=== PATIENT | female | born 1945 | race Caucasian/White ===

== ENCOUNTER → 2017-03-31 | Outpatient (CLI) | payer OTHER | LOC: BHLMT 09:30 | PROVIDERS: ATTEND Internal Medicine Cardiovascular Disease | DX: R07.9 Chest pain, unspecified (principal) | CPT/HCPCS: 78452; 93017; A9500; J2785 ==

== ENCOUNTER → 2018-03-09 | Outpatient (CLI) | payer OTHER | LOC: FIMAGING 10:18 | PROVIDERS: ATTEND Internal Medicine | DX: I25.84 Coronary atherosclerosis due to calcified coronary lesion (principal); K44.9 Diaphragmatic hernia without obstruction or gangrene; K57.30 Diverticulosis of large intestine without perforation or abscess without bleeding ==

== ENCOUNTER 2018-06-13 06:17 | Day surgery (SDC) | payer OTHER ==
[2018-06-13] MEDS ORDERED: ceFAZolin 2 GM/DEXTROSE 100 ML IV ONE (06:23)
[2018-06-13] MEDS ORDERED: LR 1,000 ML IV ONE (06:25)
[2018-06-13] MEDS ORDERED: LIDOCAINE 1% 2 ML INJ ID PRN (06:25)
[2018-06-13] MEDS ORDERED: BUPIVACAINE 0.5% 30 ML SDV ONE (07:22)
[2018-06-13] MEDS ORDERED: LIDOCAINE 1% 300 MG/30 ML SDV ONE (07:36)
--- NOTE | 2018-06-13 08:44 | PDANEPAE ---
ANE History of Present Illness soft tissue mass breast, here for lumpectomy ANE Past Medical History - Cardiovascular History Hx Hypertension: Yes Hx Arrhythmias: No Hx Chest Pain: No Hx Coronary Artery / Peripheral Vascular Disease: No Hx CHF / Valvular Disease: No Hx Palpitations: No Cardiovascular History Comment: hyperlipidemia - Pulmonary History Hx COPD: No Hx Asthma/Reactive Airway Disease: No Hx Recent Upper Respiratory Infection: No Hx Oxygen in Use at Home: No Hx Sleep Apnea: No Sleep Apnea Screening Result - Last Documented: Negative - Neurologic History Hx Cerebrovascular Accident: No Hx Seizures: No Hx Dementia: No Neurologic History Comment: neuropathy - Endocrine History Hx Diabetes: Yes Endocrine History Comment: type 2. hypothyroidism - Renal History Hx Renal Disorders: No - Liver History Hx Hepatic Disorders: No - Neurological & Psychiatric Hx Hx Neurological and Psychiatric Disorders: Yes Neurological / Psychiatric History Comment: depression - Cancer History Hx Cancer: Yes Cancer History Comment: current breast cancer. hx of basal cell - Congenital Disorder History Hx Congenital Disorders: No - GI History Hx Gastrointestinal Disorders: Yes Gastrointestinal History Comment: GERD - Other Health History Other Health History: wears glasses. lower partial plate. 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 roxanne. hysterectomy. bladder repair. bilateral foot surgeries to correct polio ANE Review of Systems Review of Systems: - Exercise capacity METS (RN): 4 METS ANE Patient History - Allergies Allergies/Adverse Reactions: morphine Allergy (Verified 06/12/18 15:37) SEVERE NAUSEA/HALLUCINATIONS/FAINTING Penicillins Allergy (Verified 06/12/18 15:37) Rash - Home Medications Home Medications: Aspirin 81mg (*) 06/12/18 [Last Taken 06/12/18] Atorvastatin Calcium 06/12/18 [Last Taken 06/12/18 2100] Citracal 06/12/18 [Last Taken Unknown] Famotidine 40 mg BID 06/12/18 [Last Taken 06/13/18 0445] Ferosul 06/12/18 [Last Taken 06/11/18 2100] Gabapentin 600 mg BID 06/12/18 [Last Taken 06/13/18 0445] Herbals/Supplements -Info Only 06/12/18 [Last Taken 06/12/18] Levothyroxine 06/12/18 [Last Taken 06/13/18 0445] Metformin HCl 06/12/18 [Last Taken 06/12/18] Potassium Chloride 06/12/18 [Last Taken 06/12/18 2100] Sertraline HCl 50 mg DAILY 06/12/18 [Last Taken 06/13/18 4445] Triamterene/Hctz 75/50 DAILY 06/12/18 [Last Taken 06/12/18] glipiZIDE XL 06/12/18 [Last Taken 06/12/18] - NPO status NPO Status: no food or drink >8 hours NPO Since - Liquids (Date): 06/13/18 NPO Since - Liquids (Time): 04:45 NPO Since - Solids (Date): 06/12/18 NPO Since - Solids (Time): 20:00 - Anes Hx Anes Hx: post operative nausea and vomiting - Smoking Hx Smoking Status: Former smoker - Alcohol Use Alcohol Use: Occasionally - Family Anes Hx Family Anes Hx: none Family Hx Anesthesia Complications: none ANE Labs/Vital Signs - Labs Result Diagrams: 06/13/18 07:10 - Vital Signs Blood Pressure: 129/75 Heart Rate: 69 Respiratory Rate: 16 O2 Sat (%): 94 Height: 160.02 cm Weight: 70.307 kg ANE Physical Exam - Airway Neck exam: FROM Mallampati Score: Class 2 Mouth exam: dentures - Pulmonary Pulmonary: no respiratory distress, clear to auscultation - Cardiovascular Cardiovascular: regular rate and rhythym, no murmur, rub, or gallop - ASA Status ASA Status: III ANE Anesthesia Plan Anesthesia Plan: GA w LMA
[2018-06-13] MEDS ORDERED: LIDOCAINE 2% 100 MG/5 ML SYR ONE (08:52)
[2018-06-13] MEDS ORDERED: fentaNYL 100 MCG/2 ML INJ ONE (08:52)
[2018-06-13] MEDS ORDERED: PROPOFOL/EMULSION 500 MG/50 ML BOTTLE IV ONE (08:52)
--- NOTE | 2018-06-13 08:53 | PDHPUP ---
History & Physical Update H&P update statement: This history and physical update is based on an assessment of the patient which was completed after admission or registration (within 24 hours), but prior to the surgery/procedure. H&P update: H&P reviewed & patient examined, no change in patient's condition since H&P completed
[2018-06-13] MEDS ORDERED: SCOPOLAMINE HYDROBROMIDE 1 MG/3 DAYS PATCH TD SCH (09:00)
[2018-06-13] MEDS ORDERED: ONDANSETRON 4 MG/2 ML VIAL ONE (09:30)
[2018-06-13] MEDS ORDERED: PROMETHAZINE HCL 25 MG/ML INJ IVP PRN (09:35)
[2018-06-13] MEDS ORDERED: HYDROCODONE/APAP 5/325 TAB PO PRN (09:35)
[2018-06-13] MEDS ORDERED: fentaNYL 100 MCG/2 ML INJ IVP PRN (09:35)
[2018-06-13] MEDS ORDERED: ONDANSETRON 4 MG/2 ML VIAL IVP PRN (09:35)
[2018-06-13] MEDS ORDERED: DEXAMETHASONE 4 MG/ML VIAL IVP PRN (09:35)
[2018-06-13] MEDS ORDERED: ACETAMINOPHEN 500 MG TAB PO PRN (09:35)
[2018-06-13] MEDS ORDERED: oxyCODONE IR 5 MG TAB PO PRN (09:35)
[2018-06-13] MEDS ORDERED: NALOXONE HCL 0.4 MG/ML INJ IVP PRN (09:35)
--- NOTE | 2018-06-13 09:52 | POSTOPPROG ---
Post Op Note Date of Operation: 06/13/18 Surgeon: Huma Tompkins Anesthesiologist: elise Anesthesia: GET(General Endotracheal) Pre-op Diagnosis: R DCIS Post-op Diagnosis: Same Indication: 72 yo with DCIS Procedure: R needle loc lump Findings: Clip in specimen Inf/Abcess present in the surg proc area at time of surgery?: No Depth: Superfical (Skin SQ) EBL: Minimal Specimen(s): lump and margins
--- NOTE | 2018-06-13 09:55 | POSTANESTH ---
Post Anesthetic Evaluation Cardiovascular Status: Normal, Stable, Similar to Pre-Op Cond Respiratory Status: Normal, Stable, Requires Airway Assist Level of Consciousness/Mental Status: Mildly Sleepy, Arousable, Moderately Sleepy Pain Control: Adequate, Prn Tx Ordered Nausea/Vomiting Control: Adequate, Prn Tx Ordered Complications Possibly Related to Anesthesia: None Noted
[2018-06-13 11:40] VITALS: BP 146/80
--- NOTE | 2018-06-13 20:49 | GOP ---
DATE OF OPERATION: 06/13/2018 SURGEON: Huma Tompkins MD ANESTHESIA: General. ANESTHESIOLOGIST: Nigel Phan MD PREOPERATIVE DIAGNOSIS: Right breast ductal carcinoma in situ. POSTOPERATIVE DIAGNOSIS: Right breast ductal carcinoma in situ. PROCEDURE PERFORMED: Right needle localized lumpectomy. FINDINGS: clip within the specimen SPECIMENS: Lumpectomy and margins. ESTIMATED BLOOD LOSS: 10 cc. INDICATIONS: The patient is a 72-year-old woman with a history of left breast cancer. 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 She was not eligible for the COMMIT trial, since this is her 2nd breast cancer. DESCRIPTION OF PROCEDURE: The patient was brought into the operating room, placed supine on the table and general anesthesia was administered. Her right breast was prepped and draped in the usual sterile fashion. I infiltrated the area with 0.5% Marcaine prior to making incisions, and made an ellipse around the wire and created superior and inferior skin flaps. I dissected down beyond the level of the wire. I marked the specimen green anterior, red superior, yellow medial, blue inferior, orange lateral, black posterior, it was submitted to Radiology. The clip was contained within the calcifications within the specimens. I took an additional superior margin inked red, medial margin inked yellow, inferior margin inked blue, lateral margin inked orange, and posterior margin inked black. Hemostasis achieved in the cavity. It went down to the pectoralis fascia. I marked the cavity with 3 titanium clips. The deep layer was closed with 3-0 Vicryl. Skin closed with 3-0 Vicryl, followed by 4-0 Monocryl. Mastisol, Steri-Strips, and sterile dressing applied. She was awakened in the operating room, extubated, transferred to PACU in stable condition. I spoke with her by phone after the case. /[id number]/MODL MTDD
== END 2018-06-13 11:40 | disposition home or self-care (01) ==
LOC: FSGY 06:17
PROVIDERS: ATTEND Surgery
PROC: 0HBT0ZZ Excision of Right Breast, Open Approach (ICD-10-PCS; principal; 2018-06-13 09:15)
PROC: 0HHT3YZ Insertion of Other Device into Right Breast, Percutaneous Approach (ICD-10-PCS; principal; 2018-06-13 09:15)
DX: D05.11 Intraductal carcinoma in situ of right breast (principal); F32.9 Major depressive disorder, single episode, unspecified; E11.42 Type 2 diabetes mellitus with diabetic polyneuropathy; E78.5 Hyperlipidemia, unspecified; I10 Essential (primary) hypertension; E03.9 Hypothyroidism, unspecified; M85.89 Other specified disorders of bone density and structure, multiple sites; E55.9 Vitamin D deficiency, unspecified; Z79.82 Long term (current) use of aspirin; Z87.891 Personal history of nicotine dependence; Z86.000 Personal history of in-situ neoplasm of breast; Z86.010 Personal history of colon polyps; Z82.49 Family history of ischemic heart disease and other diseases of the circulatory system; Z82.3 Family history of stroke; Z90.710 Acquired absence of both cervix and uterus; Z88.0 Allergy status to penicillin
CPT/HCPCS: J0690; J2001; J2405; J2704; J3010